=== PATIENT | male | born 1950 | race Caucasian/White ===

== ENCOUNTER 2017-08-08 09:10 | Day surgery (SDC) | payer MEDICARE ==
[~2017-08-08 09:10] MED LIST: Buffered Lidocaine 0.9% SYRIN* 5 ML/SYR SYRINGE INTRADERM ONE; Famotidine IV* 10 MG/ML 2 ML (20 mg) IV ONE; Metoclopramide IV* 5 MG/ML 2 ML VIAL IV SLOW PU ONE; Sodium Citrate/Citric Acid* 15 ML UDC PO ONE
[2017-08-08] MEDS ORDERED: Sodium Citrate/Citric Acid* 15 ML UDC ONE (09:44)
[2017-08-08] MEDS ORDERED: Famotidine IV* 10 MG/ML 2 ML (20 mg) ONE (09:44)
[2017-08-08] MEDS ORDERED: Metoclopramide IV* 5 MG/ML 2 ML VIAL ONE (09:44)
[2017-08-08] MEDS ORDERED: ceFAZolin 2 GM PREMIX (*) 2 GM/50 ML BAG IVPB ONE ×2 (09:45→11:19)
[2017-08-08] MEDS ORDERED: Midazolam* 1 MG/ML 2 ML VIAL (2 MG) ONE (10:44)
[2017-08-08] MEDS ORDERED: fentaNYL* 50 MCG/ML 2 ML VIAL (100 MCG VIAL) ONE ×3 (10:44→13:43)
[2017-08-08] MEDS ORDERED: Lidocaine 2% PF * 5 ML VIAL ONE (10:47)
[2017-08-08] MEDS ORDERED: Propofol* 10 MG/ML 20 ML BTL IV PUSH ONE (10:47)
[2017-08-08] MEDS ORDERED: Etomidate* 2 MG/ML 10 ML VIAL ONE (10:48)
[2017-08-08] MEDS ORDERED: Bupivacaine 0.5% SDV PF* 10-30ML VIAL ONE (11:32)
[2017-08-08] MEDS ORDERED: oxyCODONE TAB* 5 MG TAB PO PRN (12:25)
[2017-08-08] MEDS ORDERED: Levalbuterol 0.63MG/3ML NEB* UNIT OF USE INH PRN (12:25)
[2017-08-08] MEDS ORDERED: diPHENhydraMINE IV* 50 MG/ML 1 ml VIAL (BENADRYL) IV PRN (12:25)
[2017-08-08] MEDS ORDERED: Ondansetron INJ* 2 MG/ML VIAL IV PRN (12:25)
[2017-08-08] MEDS ORDERED: Naloxone* 0.4 MG/ML 1 ML VIAL IV PRN (12:25)
[2017-08-08] MEDS ORDERED: Sterile Water for Inj* 10 ML ONE (12:41)
[2017-08-08] MEDS ORDERED: Gelfoam 12-7 ADSORBABL SPONGE* 1 EA SPONGE ONE ×2 (12:41→13:16)
[2017-08-08] MEDS ORDERED: EPHEDrine (Pressors)* 50 MG/ML VIAL ONE (12:41)
[2017-08-08] MEDS ORDERED: Phenylephrine INJ* 10 MG/ML 1 ML VIAL (10 MG) ONE (12:42)
[2017-08-08] MEDS ORDERED: HYDROmorphone INJ* 2 MG/ML CARPUJECT SYRINGE ONE (13:43)
[2017-08-08] MEDS ORDERED: oxyCODONE/Acetamin 5/325 MG* TAB ONE (13:43)
[2017-08-08] MEDS: fentaNYL* 50 MCG/ML 2 ML VIAL (100 MCG VIAL) IV PRN ×2 (13:46→14:06)
[2017-08-08] MEDS: oxyCODONE/Acetamin 5/325 MG* TAB PO PRN ×2 (13:47→14:42)
[2017-08-08] MEDS: HYDROmorphone INJ* 1 MG/ML CARPUJECT SYRINGE IV PRN ×2 (13:49→14:08)
[2017-08-08 14:52] VITALS: BP 116/85
--- NOTE | 2017-08-08 20:26 | RAD ---
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 FINDINGS: 2 spot films depict medullary screws spanning the left ankle joint.. Fluoroscopy time: 11.8 seconds IMPRESSION: As above.
--- NOTE | 2017-08-09 01:22 | OP ---
DATE OF OPERATION: 08/08/17 - SDS DATE OF : 46 ATTENDING SURGEON: Colton Camargo MD CARE SUPPORT REPRESENTATIVE: Mckenna Sheffield PA-C PRE-OP DIAGNOSIS: Left tibiotalar arthrosis. POST-OP DIAGNOSIS: Left tibiotalar arthrosis. PRIMARY PROCEDURE: Left tibiotalar fusion. DESCRIPTION OF PROCEDURE: The patient was taken to the operating room where a longitudinal incision was made over the distal fibula. We have raised a full thickness flap at the anterior aspect of the tibiotalar joint with a Gomez elevator used to free up the ankle joint. A laminar jukebox coin collector was used to fully expose the ankle joint where a curette and a small power sally 4 mm diameter was used to prepare the joint for arthrodesis. We harvested cancellous bone from the distal lateral fibula through a small corticotomy placing this along the tibiotalar joint. We then drove the guide pins for the 6.5 screws across the tibiotalar joint in a parallel fashion. The guide pins that we were given were slightly different than the normal size guide pins, so we have some difficulty measuring. We drilled both partially- threaded cancellous screws over washers across the joint with excellent compression, but we found both were too long on the AP image intensifier of about 15 mm. We then exchanged them for shorter screws. Still excellent compression was obtained. We then irrigated laterally closing with deep 2-0 Vicryl sutures, superficial 2-0 Vicryl sutures and paul for the skin and a compression dressing and plaster splint applied. [id number]/[facility] #: [id number] MTDD
== END 2017-08-08 15:19 | disposition home or self-care (01) ==
LOC: OR 09:10
PROVIDERS: ATTEND Orthopaedic Surgery
DX: M19.172 Post-traumatic osteoarthritis, left ankle and foot (principal); E11.9 Type 2 diabetes mellitus without complications; Z79.84 Long term (current) use of oral hypoglycemic drugs; I10 Essential (primary) hypertension; E78.00 Pure hypercholesterolemia, unspecified; Z72.0 Tobacco use; R05 Cough; Z68.39 Body mass index [BMI] 39.0-39.9, adult
CPT/HCPCS: 76000; 88305; A9270-GY; C1713; C1776; J0690; J1170; J2250; J2704; J2765; J3010